=== PATIENT | female | born 1955 | race Caucasian/White ===

== ENCOUNTER → 2017-07-27 19:38 | Outpatient (CLI) | payer OTHER ==
[~2017-07-27 19:38] MED LIST: ALLEGRA ALLERGY60 MG PO; AMOX1TAB5 PO; BUCALSEP SPRAY30 ML MM; LOTRISONE CREAM45 GM TP; MEDROL4 MG PO; TOPROL XL25 MG PO; ZITHROMAX500 MG PO
== END | disposition home or self-care (01) ==
LOC: RAD 19:38
DX: M25.561 Pain in right knee (principal)

== ENCOUNTER 2019-03-14 10:27 | Outpatient (CLI) | payer OTHER | END 2019-03-14 10:45 | disposition home or self-care (01) | LOC: LAB 10:27 | DX: J11.1 Influenza due to unidentified influenza virus with other respiratory manifestations (principal) ==

== ENCOUNTER 2019-06-30 14:55 | Outpatient (CLI) | payer OTHER | END 2019-06-30 15:10 | disposition home or self-care (01) | LOC: RAD 14:55 | DX: M25.569 Pain in unspecified knee (principal); M19.90 Unspecified osteoarthritis, unspecified site ==

== ENCOUNTER → 2019-12-04 | Outpatient (CLI) | payer OTHER | END | disposition home or self-care (01) | LOC: RAD 15:54 | PROVIDERS: ATTEND Physical Medicine & Rehabilitation | DX: M54.6 Pain in thoracic spine (principal) ==

== ENCOUNTER 2020-03-02 08:16 | Outpatient (CLI) | payer OTHER | END 2020-03-02 08:31 | disposition home or self-care (01) | LOC: RAD 08:16 | PROVIDERS: ATTEND Physical Medicine & Rehabilitation | DX: M17.0 Bilateral primary osteoarthritis of knee (principal); M19.071 Primary osteoarthritis, right ankle and foot; M19.072 Primary osteoarthritis, left ankle and foot ==

== ENCOUNTER 2020-04-16 10:26 | Outpatient (CLI) | payer OTHER | END 2020-04-16 10:36 | disposition home or self-care (01) | LOC: RAD 10:26 | PROVIDERS: ATTEND Physical Medicine & Rehabilitation | DX: I87.8 Other specified disorders of veins (principal); M16.0 Bilateral primary osteoarthritis of hip ==

== ENCOUNTER 2020-04-19 09:02 | Outpatient (CLI) | payer OTHER | END 2020-04-19 09:25 | disposition home or self-care (01) | LOC: LAB 09:02 | PROVIDERS: ATTEND Obstetrics & Gynecology | DX: R05 Cough (principal); I10 Essential (primary) hypertension; E78.49 Other hyperlipidemia; E03.8 Other specified hypothyroidism; N30.00 Acute cystitis without hematuria; E83.51 Hypocalcemia; Z12.11 Encounter for screening for malignant neoplasm of colon; E06.3 Autoimmune thyroiditis; N95.8 Other specified menopausal and perimenopausal disorders; R97.8 Other abnormal tumor markers; Z11.3 Encounter for screening for infections with a predominantly sexual mode of transmission; A60.04 Herpesviral vulvovaginitis; R74.8 Abnormal levels of other serum enzymes; E22.1 Hyperprolactinemia; E28.2 Polycystic ovarian syndrome ==

== ENCOUNTER 2020-06-10 07:51 | Outpatient (CLI) | payer OTHER | END 2020-06-10 08:11 | disposition home or self-care (01) | LOC: NUCLEAR 07:51 | PROVIDERS: ATTEND Obstetrics & Gynecology | DX: M81.0 Age-related osteoporosis without current pathological fracture (principal) ==

== ENCOUNTER 2021-02-13 15:21 | Outpatient (CLI) | payer OTHER | END 2021-02-13 15:29 | disposition home or self-care (01) | LOC: RAD 15:21 | PROVIDERS: ATTEND Physical Medicine & Rehabilitation | DX: M17.0 Bilateral primary osteoarthritis of knee (principal); M25.569 Pain in unspecified knee ==

== ENCOUNTER 2024-02-15 15:58 | Outpatient (CLI) | payer OTHER | END 2024-02-15 15:59 | disposition home or self-care (01) | LOC: RAD 15:58 | DX: M99.03 Segmental and somatic dysfunction of lumbar region (principal); M99.04 Segmental and somatic dysfunction of sacral region; M99.05 Segmental and somatic dysfunction of pelvic region; M25.551 Pain in right hip; M25.552 Pain in left hip ==

== ENCOUNTER 2024-09-01 13:01 | Outpatient (CLI) | payer OTHER | END 2024-09-01 13:06 | disposition home or self-care (01) | LOC: RAD 13:01 | PROVIDERS: ATTEND Physical Medicine & Rehabilitation | DX: M54.59 Other low back pain (principal); M25.552 Pain in left hip ==

== ENCOUNTER 2024-12-19 15:52 | Outpatient (CLI) | payer OTHER | END 2024-12-19 15:57 | disposition home or self-care (01) | LOC: RAD 15:52 | PROVIDERS: ATTEND Orthopaedic Surgery | DX: M25.851 Other specified joint disorders, right hip (principal); M25.852 Other specified joint disorders, left hip; Q65.89 Other specified congenital deformities of hip ==

== ENCOUNTER 2025-02-21 15:34 | Outpatient (CLI) | payer OTHER | END 2025-02-21 15:42 | disposition home or self-care (01) | LOC: RAD 15:34 | DX: M25.531 Pain in right wrist (principal) ==